=== PATIENT | female | born 1995 | race Caucasian/White ===

== ENCOUNTER 2023-11-29 21:26 | Outpatient (CLI) | payer SELFPAY | END 2023-11-29 21:27 | disposition EMS.NT | LOC: EMS 21:26 | DX: R55 Syncope and collapse (principal); R11.10 Vomiting, unspecified ==

== ENCOUNTER 2024-03-31 08:00 | Outpatient (CLI) | payer OTHER ==
[2024-03-31 22:57] LABS: CHLAMYDIA TRACHOMATIS DNA NEGATIVE (NEGATIVE); NEISSERIA GONORRHOEAE DNA NEGATIVE (NEGATIVE); TRICHOMONAS VAGINALIS DNA NEGATIVE (NEGATIVE)
== END 2024-03-31 23:59 | disposition home or self-care (01) ==
LOC: LAB.WC 08:00
PROVIDERS: ATTEND Nurse Practitioner
DX: Z11.3 Encounter for screening for infections with a predominantly sexual mode of transmission (principal)
CPT/HCPCS: 87491; 87591; 87661